=== PATIENT | male | born 1945 | race Caucasian/White ===

== ENCOUNTER 2022-06-19 15:11 | Observation (INO) | payer MEDICARE, BC ==
[2022-06-19 16:20] LABS: Hemoglobin 16.4 g/dL (14.0-18.0); Mean Corpuscular HGB CONC 34.8 g/dL (32.0-36.0); Mean Corpuscular Hemoglobin 33.6 pg (27.0-31.0); Mean Corpuscular Volume 96.7 fl (78.0-98.0); RBC Distribution Width 11.6 % (11.5-14.5); Red Blood Cell (RBC) Count 4.89 mill/uL (4.70-6.10); White Blood Cell (WBC) Count 6.6 10x3/uL (4.8-10.8)
[2022-06-19 16:21] LABS: #Eosinphils 0.1 thou/uL (0.0-0.7); #Lymphocytes 1.4 thou/uL (1.20-3.40); #Monocytes 0.6 thou/uL (0.11-0.59); #Neutrophils 4.5 thou/uL (1.40-6.50); %Basophils 0.4 % (0.0-1.0); %Eosinophils 1.6 % (0.0-10.0); %Lymphocytes 21.4 % (21.0-51.0); %Monocytes 8.6 % (0.0-10.0); %Neutrophils 68.1 % (42.0-75.0)
[2022-06-19 16:36] LABS: Mean Platelet Volume 10.8 fL (7.4-10.4); Platelet Count 89 10x3/uL (130-400)
[2022-06-19 16:37] LABS: MDiff Complete? YES; Platelet Morphology Comment Appears Decreased; Polychromasia SLIGHT = 2-3 cells (100X) (0-2/hpf)
[2022-06-19 16:40] LABS: ALT (SGPT) 21 U/L (8-55); AST (SGOT) 17 U/L (5-34); Albumin 4.3 g/dL (3.4-4.8); Alkaline Phosphatase 59 U/L (40-110); Anion Gap 12 mmol/L (10-20); BUN (Urea Nitrogen) 13 mg/dL (8.4-25.7); Calc. Creatinine Clearance 0 mL/min (70-130); Calcium 9.4 mg/dL (7.8-10.44); Carbon Dioxide 30 mmol/L (23-31); Chloride 105 mmol/L (98-107); Estimated GFR 77; Globulin 2.6 g/dL (2.4-3.5); Glucose 129 mg/dL (83-110); Lipase 49 U/L (8-78); Potassium 4.5 mmol/L (3.5-5.1); Protein, Total 6.9 g/dL (5.8-8.1); Sodium 142 mmol/L (136-145)
[2022-06-19] MEDS ORDERED: Atropine Sulfate 1 mg/10 ml Syringe ONE (17:08)
[2022-06-19] MEDS ORDERED: Acetaminophen 325 MG TAB PO PRN (18:01)
[2022-06-19] MEDS ORDERED: Nitroglycerin 0.4 MG TAB (25 Tab Bottle) SL PRN (18:08)
[2022-06-19 18:43] LABS: Magnesium 2.2 mg/dL (1.6-2.6)
[2022-06-19] MEDS ORDERED: Furosemide 40 MG/4 ML VIAL SLOW IVP SCH (19:30)
[2022-06-19 19:57] VITALS: BMI 29.2
[2022-06-19 20:20] LABS: Troponin I Less than 0.010 ng/mL (< 0.028)
[2022-06-19 22:35] LABS: Troponin I Less than 0.010 ng/mL (< 0.028)
[2022-06-20 05:15] LABS: #Eosinphils 0.2 thou/uL (0.0-0.7); #Lymphocytes 1.7 thou/uL (1.20-3.40); #Monocytes 0.8 thou/uL (0.11-0.59); #Neutrophils 4.5 thou/uL (1.40-6.50); %Basophils 0.6 % (0.0-1.0); %Eosinophils 2.2 % (0.0-10.0); %Lymphocytes 23.8 % (21.0-51.0); %Monocytes 10.5 % (0.0-10.0); Hemoglobin 15.3 g/dL (14.0-18.0); Mean Corpuscular HGB CONC 34.2 g/dL (32.0-36.0); Mean Corpuscular Hemoglobin 32.9 pg (27.0-31.0); Mean Corpuscular Volume 96.1 fl (78.0-98.0); Platelet Count 77 10x3/uL (130-400); RBC Distribution Width 11.7 % (11.5-14.5); Red Blood Cell (RBC) Count 4.65 mill/uL (4.70-6.10); White Blood Cell (WBC) Count 7.2 10x3/uL (4.8-10.8)
[2022-06-20 05:31] LABS: Anion Gap 13 mmol/L (10-20); BUN (Urea Nitrogen) 16 mg/dL (8.4-25.7); Calc. Creatinine Clearance 110 mL/min (70-130); Carbon Dioxide 25 mmol/L (23-31); Cardiac Risk 3.3 (Less than 4.5); Chloride 106 mmol/L (98-107); Cholesterol 104 mg/dl (< 200 Desired); Estimated GFR 91; Glucose 95 mg/dL (83-110); HDL Cholesterol 32 mg/dL (>60 Neg Risk); LDL Cholesterol, Calculated 58 mg/dL; Potassium 3.8 mmol/L (3.5-5.1); Sodium 140 mmol/L (136-145); Triglycerides 68 mg/dL (Less than 150)
[2022-06-20] MEDS ORDERED: Tamsulosin HCl 0.4 MG CAP PO SCH (09:00)
[2022-06-20] MEDS ORDERED: Atorvastatin Calcium 20 MG TAB PO SCH (09:00)
[2022-06-20] MEDS ORDERED: Aspirin Chewable 81 MG TAB PO SCH (09:00)
[2022-06-20] MEDS ORDERED: Vancomycin HCl 500 MG VIAL ONE (12:13)
[2022-06-20] MEDS ORDERED: Clindamycin/D5W 600 mg/50 ml Premix Bag ONE (12:13)
[2022-06-20] MEDS ORDERED: Lidocaine 1% (PF) 30 ML VIAL ONE (12:13)
[2022-06-20] MEDS ORDERED: Levofloxacin 500 mg/D5W 100 ml Premix Bag ONE (12:14)
[2022-06-20] MEDS ORDERED: fentaNYL 50 mcg/mL 1 mL Vial ONE (13:00)
[2022-06-20] MEDS ORDERED: Midazolam HCl 2 mg/2 ml Vial ONE (13:00)
[2022-06-20 16:42] VITALS: BP 157/76; TEMP 97.9
[2022-06-20] MEDS ORDERED: traZODone HCl 50 MG TAB PO SCH (21:00)
[2022-06-21] MEDS ORDERED: Ramipril 5 MG CAP PO SCH (09:00)
== END 2022-06-20 18:48 | disposition home or self-care (01) ==
LOC: ERS 15:11 → 2SW 17:58
PROVIDERS: ADMIT Internal Medicine; ATTEND Internal Medicine
PROC: 0JH606Z Insertion of Pacemaker, Dual Chamber into Chest Subcutaneous Tissue and Fascia, Open Approach (ICD-10-PCS; principal; 2022-06-20)
PROC: 02H63JZ Insertion of Pacemaker Lead into Right Atrium, Percutaneous Approach (ICD-10-PCS; 2022-06-20)
PROC: 02HK3JZ Insertion of Pacemaker Lead into Right Ventricle, Percutaneous Approach (ICD-10-PCS; 2022-06-20)
DX: R00.1 Bradycardia, unspecified (principal); I48.91 Unspecified atrial fibrillation; R07.89 Other chest pain; I48.0 Paroxysmal atrial fibrillation; I10 Essential (primary) hypertension; N40.0 Benign prostatic hyperplasia without lower urinary tract symptoms; R60.0 Localized edema; D69.6 Thrombocytopenia, unspecified; E78.5 Hyperlipidemia, unspecified; I25.10 Atherosclerotic heart disease of native coronary artery without angina pectoris; G47.30 Sleep apnea, unspecified; Z79.82 Long term (current) use of aspirin; Z79.899 Other long term (current) drug therapy; Z88.0 Allergy status to penicillin
CPT/HCPCS: 33208; 71045 ×2; 80048; 80061; 83690; 83735; 83880; 84484 ×2; 85025; 93005; 93306; 94760 ×2; 96374; 96375 ×2; 99285; C1785; C1898 ×2; G0378 ×3; J0461; J1611; 36415; 80053; 84443; 93010; 99152; 99153; J1940; J1956; J2001; J2250; J3010; J3370; J3490

== ENCOUNTER 2022-09-25 12:49 | Outpatient (CLI) | payer MEDICARE, BC | END 2022-09-25 12:50 | disposition home or self-care (01) | LOC: BICCT 12:49 | PROVIDERS: ATTEND Psychiatry & Neurology Neurology | DX: R25.1 Tremor, unspecified (principal) | CPT/HCPCS: 70450 ==

== ENCOUNTER 2023-01-21 07:58 | Outpatient (CLI) | payer MEDICARE, BC | END 2023-01-21 07:59 | disposition home or self-care (01) | LOC: MRI 07:58 | PROVIDERS: ATTEND Physician Assistant Medical | DX: D69.6 Thrombocytopenia, unspecified (principal); R16.1 Splenomegaly, not elsewhere classified; K76.0 Fatty (change of) liver, not elsewhere classified | CPT/HCPCS: 71045; 74183; 82565 ==

== ENCOUNTER 2024-02-25 09:51 | Outpatient (CLI) | payer MEDICARE ==
[2024-02-25] MEDS ORDERED: CEFAZOLIN 2 GM VIAL ONE (14:01)
== END 2024-02-25 09:52 | disposition home or self-care (01) ==
LOC: MRI 09:51
PROVIDERS: ATTEND Physician Assistant Medical
DX: K86.2 Cyst of pancreas (principal); R16.1 Splenomegaly, not elsewhere classified; D69.6 Thrombocytopenia, unspecified; K76.0 Fatty (change of) liver, not elsewhere classified
CPT/HCPCS: 74183